=== PATIENT | male | born 1985 | race Caucasian/White ===

== ENCOUNTER → 2016-10-04 | Outpatient (CLI) | payer OTHER ==
--- NOTE | 2016-10-05 06:40 | PAP/PSG TECHNICIAN REPORT ---
[facility] Geothermal Operating Engineer Polysomnogram Report Study name: None Report date: 10/05/2016 Study date: 10/04/2016 Referring Physician: Name: KRISHNA OROZCO Interpreting Physician: Wai Wyatt D.O. Date of : 1985 Geothermal Operating Engineer: Brigitte Chung RPSGT. Sex: Male Age: 31 Study Type: PSG Weight: 179 lbs Height: 31 years, Height 6' 0.5" BMI: 23.94 Medications: NONE REPORTED Patient History 31 yr-old male here for a baseline/split study. He has a history of snoring and witnessed apneas. He had completed a home sleep study. He was found to have mild CAMERON. He is in the lab to assess any CAMERON. His [place] scale is 9. The test was started on room air. ETCO2 testing was not utilized during this study. Room 3 Parameters Monitored NPSG: E1-M2, E2-M1, Fp1-M2, Fp2-M1, F3-M2, F4-M2, F4-M1, C3-M2, C4-M2, C4-M1, O1-M2, O2-M2, O2-M1, T3-M2, T4-M1, P3-M2, P4-M1, CHIN1, CHIN2, HR, EKG, Legs, PFLOW, SNOR, FLOW, CFLOW, Tidal Volume, THOR, ABDO, SpO2, PLTH, CPRESS, ETCO2 Wave, ETCO2, pH Sleep Architecture Sleep Stages Time at Lights Off 10:02:13 PM STAGES Time (min.) TST (%) Time at Lights On 5:29:43 AM Wake 31.0 -- Total Recording Time (TRT) 447.50 min. N1 37.0 9 Total Sleep Period (TSP) 442.0 min. N2 249.0 60 Total Sleep Time (TST) 416.5min. N3 33.0 8 Awake Time 31.0 min. REM 97.5 23 Wake after Sleep Onset 26.5 min. Sleep Efficiency (SE) 93 % Sleep Onset Latency ([place]) 4.5 min. Number of Stage 1 Shifts None Awakenings 17 Stage Changes 100 Number of REM periods 7 REM 97.5 23 REM Latency 76.5 min. NREM 319.0 77 Body Position Analysis Supine Right Left Side Prone Vertical Total Sleep Time (min.) 112.7 128.3 195.7 324.05 0.0 0.0 Total Sleep Time (%) 22% 31% 47% 78 0% N/A% Total Sleep Time REM (min.) 27.8 34.2 35.5 None 0.0 0.0 Total Sleep Time NREM (min.) 64.7 94.1 160.2 None 0.0 0.0 Intermittent Wake (min.) 20.3 2.3 8.4 None 0.0 0.0 Total Sleep Period (%) 24% None None None None None Arousals Myoclonus (PLM) * Events Count Index Events Count Index Spontaneous 39 6 Events Awake (PLMW) 30 58.1 Respiratory 18 2.9 Events Asleep w/ Arousal (PLMA) 10 1.4 PLM 10 1 Events Asleep w/o Arousal (PLMS) 58 8.4 Snoring 11 2 Total Asleep 68 9.8 Total 78 11 Total 98 13 Respiratory Analysis * CA OA MA CH H RERA Total Count 0 2 0 0 33 9 35 Index 0.0 0.3 0.0 0 4.8 1 6.3 Mean Duration 0.0 24.3 0.0 0.00 20.6 18.4 20.3 Longest Duration 0.0 31.5 0.0 0.00 0.0 23.2 35.9 Respiratory Event Summary Total Supine ~Supine Right Left Prone REM NREM Apneas Count 2 0 2 0 2 N/A 0 2 Index 0.3 0 0 0.0 0.6 N/A 0 0 Hypopneas (4% Desat) Count 33 14 19 4 15 N/A 20 13 Index 4.8 9.1 4 1.9 4.6 N/A 12.3 2.4 Apneas & All Hypopneas Count 35 14 21 4 17 N/A 20 15 Index 5.0 9 4 2 5 N/A 12.3 2.8 Respiratory Events (Channeling Machine Operator+All Hyp+RERA) Count 35 17 27 6 21 N/A 20 15 Index 6.3 11 5 2.8 6.4 N/A 13.5 4.1 Respiratory Related Arousal Count 18 17 10 3 7 N/A 5 15 Index 2.9 6 2 1 2 N/A 3 3 Snoring Analysis Supine Right Left Prone REM NREM Total Snore duration 5.1 min Snores count 34 33 48 N/A 36 79 115 Snore mean duration 2.7 Sec Snores index 22 15 15 N/A 22.2 14.9 16.6 TST with snoring (%) 1.2% Desaturation Event Summary: Minimum %SpO2 Event Count Mean/Min/Max Duration(sec.) Desaturation Index % Time In Bed > 90 42 32.2 / 9.3 / 60.0 5.8 98.1 86 - 90 1 9.3 / 9.3 / 9.3 7.3 1.8 81 - 85 0 N/A 0.0 0.0 76 - 80 0 N/A 0.0 0.0 71 - 75 0 N/A 0.0 0.0 66 - 70 0 N/A 0.0 0.0 61 - 65 0 N/A 0.0 0.0 56 - 60 0 N/A 0.0 0.0 51 - 55 0 N/A 0.0 0.0 < 50 0 N/A 0.0 0.0 Total REM NREM Awake <50% 0.0 min. 0.0 min. 0.0 min. 0.0 min. 51 - 60% 0.0 min. 0.0 min. 0.0 min. 0.0 min. 61 - 70% 0.0 min. 0.0 min. 0.0 min. 0.0 min. 71 - 80% 0.0 min. 0.0 min. 0.0 min. 0.0 min. 81 - 90% 8.3 min. 3.4 min. 4.6 min. 0.3 min. 91 - 100% 437.7 min. 94.0 min. 313.9 min. 29.8 min. Average 94 94 94 94 Minimum SpO2 85 85 88 89 Desaturation Event Index 5.6 12.3 3.6 5.8 # Desat. Events below 89% 5 3 2 N/A Time(%) with Saturation below 89% 0.3 0.2 0.1 0.0 Time(min.) with Saturation below 89% 1.5 1.0 0.5 0.0 Time (mins) REM (mins) NREM (mins) % of TST SpO2 Below 90% 23 10 N13 0.9 SpO2 Below 88% 4 0 0 0 Heart Rate Analysis Min (bpm) Max (bpm) Average (bpm) Awake 43 127 61 NREM 41 82 51 REM 42 86 57 Overall 41 86 52 Supplemental O2 Values Minimum O2 level: None Value Start Time End Time Geothermal Operating Engineer Comments Mr. Orozco slept in the right, left, and supine positions. No cardiac arrhythmias or PLMs were noted. Some episodes of bruxism were noted. Snoring was noted and scored as a 1-2 on a scale of 1 through 5. (0=no snoring, 5=snoring loud enough to be heard through a closed door or down the [address] way). He did not meet specific Split-Night criteria during the diagnostic portion of this study. He did not wake up to use the restroom during the night. Mr. Orozco stated that he slept a little worse than usual. The final report will be interpreted and signed by a sleep physician. The completed physician report will then be placed in the patient medical record. Therapy (cm H2O) 0 TIB (min.) 447.5 TST (min.) 416.5 Sleep Onset (min.) 4.5 REM Onset From Sleep (min.) 76.5 Sleep Efficiency % 93 Wakefulness (%) 7 Wakefulness (min.) 31.0 NREM 1 (%) 9 NREM 1 (min.) 37.0 NREM 2 (%) 60 NREM 2 (min.) 249.0 NREM 3 (%) 8 NREM 3 (min.) 33.0 REM (%) 23 REM (min.) 97.5 # Arousals 78 Arousal Index 11 # Snore 115 Snore Index 16.6 AHI 5.0 AHI Supine 9 AHI Non-Supine 4 NREM AHI 2.8 REM AHI 12.3 RDI 6.3 # Obstructive Apnea 2 # Central Apnea 0 # Mixed Apnea 0 # Hypopneas 33 RERAs 9 Total Respiratory Events 45 Time Below SpO2 89% (min.) 1.5 Mean NREM SpO2 (%) 94 Mean REM SpO2 (%) 94 Mean Sleep SpO2 (%) 94 Min NREM SpO2 (%) 88 Min REM SpO2 (%) 85 Position Supine (min.) 112.7 Position Non-supine (min.) 324.1 LM Index Sleep 9.8 LM Index NREM 10.0 LM Index REM 9.2 Mean Heart Rate (bpm) 52 Min Heart Rate (bpm) 41
--- NOTE | 2016-10-08 14:36 | POLYSOMNOGRAPH REPORT ---
CLINICAL DATA: The patient is a 31-year-old male referred by Dr. Demetri Batista. The patient has a history of having a home sleep study done which reportedly showed mild obstructive sleep apnea. He was referred for a diagnostic sleep study and to do a titration study if the patient qualifies. His Perry Sleepiness Score is 9 out of a possible 24. SLEEP ARCHITECTURE: The total sleep period was 442.0 minutes. The total sleep time was 416.5 minutes. The sleep efficiency was normal at 93%. The sleep onset latency was normal at 4.5 minutes. Wake after sleep onset was only 26.5 minutes. The REM latency was normal at 76.5 minutes. Sleep consisted of stage N1 9%, stage N2 60%, stage N3 8%, stage REM 23%. AROUSAL DATA: The patient had a total of 78 arousals including 39 spontaneous arousals, 18 respiratory arousals, 10 PLM arousals, and 11 snoring arousals. The arousal index was 11. PLM DATA: The patient had a total of 68 periodic limb movements of sleep for an index of 9.8. The PLM arousal index was only 1.4. EKG: The underlying cardiac rhythm was normal sinus. The cardiac rates ranged from 41-86 beats per minute with an average of 52 beats per minute. No arrhythmias were noted. RESPIRATORY DATA: The patient had a total of 35 respiratory events including 2 obstructive apneas and 33 hypopneas. The 4% rule was utilized for scoring hypopneas. The apnea hypopnea index was 5.0 events per hour. This would be reflecting borderline normal to mild sleep apnea. He did have 9 RERAS. OXIMETRY DATA: The average oxygen saturation was 94%. The minimum saturation was 85%, but this was very transient. For the entire night he had a total of 1.5 minutes with saturations less than 89%. SERVICE RIG OPERATOR'S COMMENTS: The patient slept in the right, left, and supine positions. No cardiac arrhythmias were noted. Some episodes of bruxism were noted. Snoring was noted and scored as a 1-2 on a scale of 1 through 5. He did not meet specific split night criteria and thus he was not treated with nasal CPAP. IMPRESSION: Obstructive sleep apnea -- mild. COMMENTS: The patient had a normal sleep efficiency and normal sleep architecture. There was a modest number of increased arousals, many of which were spontaneous. His snoring was mild to moderate. His apnea hypopnea index is 5.0, which reflects borderline normal to at most mild sleep apnea. Oxygenation was essentially normal. RECOMMENDATIONS: Follow up is deferred to Dr. Demetri Batista who referred the patient. Considerations could include ENT surgery, treatment with an oral appliance, or consideration to a trial of nasal CPAP if clinically indicated. [facility]
== END | disposition home or self-care (01) ==
LOC: C.NEUR 21:00
DX: G47.33 Obstructive sleep apnea (adult) (pediatric) (principal)

== ENCOUNTER → 2016-11-24 | Outpatient (CLI) | payer OTHER ==
[2016-11-24 19:12] LABS: BASO % 0.5 %; BASO ABS # 0.03 K/uL (0-0.2); COMPLETE YES; EOS % 1.8 %; HEMATOCRIT 43.5 % (42-52); IG% 0.2 %; LYMPH % 40.3 %; LYMPH ABS # 2.41 K/uL (1.2-3.4); MEAN CELL VOLUME 83.3 fL (80-100); MEAN CORPUSCULAR HEMOGLOBIN 29.5 pg (25-34); MEAN CORPUSCULAR HGB CONC 35.4 g/dl (32-36); MEAN PLATELET VOLUME 9.9 fL (7.4-10.4); MONO % 7.7 %; NEUT % 49.5 %; PLATELET COUNT 240 K/uL (130-400); RED BLOOD COUNT 5.22 M/uL (4.7-6.1); WHITE BLOOD COUNT 5.98 K/uL (4.8-10.8)
[2016-11-24 19:23] LABS: PROTHROMBIN TIME (PATIENT) 10.7 SECONDS (9.0-12.0)
== END | disposition home or self-care (01) ==
LOC: C.LAB 18:52
DX: Z01.818 Encounter for other preprocedural examination (principal)

== ENCOUNTER → 2016-12-02 | Day surgery (SDC) | payer OTHER ==
[2016-12-01 10:29] VITALS: Ht 182.9 cm; Wt 77.3 kg
[~2016-12-02] VITALS: Ht 182.9 cm; Wt 77.3 kg
[~2016-12-02] MED LIST: ACETAMINOPHEN/HYDROCODONE ELIX 15 ML/CUP UDP ONE; ATROPINE SULFATE 0.1 MG/ML 5ML SYR IV PRN; BACITRACIN/POLYMYXIN B OINT 15 GM TUBE EXT ONE; DEXAMETHASONE SOD INJ 4 MG/ML VIAL ONE; EpHEDrine SULFATE INJ 50 MG/ML AMP IV PRN; FENTANYL CITRATE INJ 50 MCG/1 ML 2 ML VIAL ONE; FLUMAZENIL 0.1 MG/1 ML 10 ML VIAL IV PRN; GLYCOPYRROLATE INJ 0.2 MG/ML VIAL ONE; HYDROCODONE/APAP 2.5MG/108MG ELIX 5 ML UDP PO PRN; LABETALOL HCL IV 5 MG/ML 20ML IV PRN; LACTATED RINGER'S 1000ML 1,000 ML IV SCH; LIDOCAINE 2% JELLY 5 ML TUBE EXT ONE; LIDOCAINE HCL 2% 2 ML VIAL (20MG/ML) ONE; MIDAZOLAM HCL 1 MG/ML 2ML VIAL ONE; NALOXONE HCL 0.4 MG/1 ML VIAL/CARP IV PRN; NEOSTIGMINE METHYLSULFATE 5 MG/5 ML SYR ONE; ONDANSETRON INJ 2 MG/ML 2 ML VIAL IV PRN; ONDANSETRON INJ 2 MG/ML 2 ML VIAL ONE; PATIENT'S ALLERGY INFO NEEDS ENTERED SCH; PROMETHAZINE HCL INJ 12.5 MG in SODIUM CHLORIDE 0.9% 50ML 50 ML IV PRN; PROPOFOL IV EMULSION 10 MG/ML 20 ML VIAL IV ONE
--- NOTE | 2016-12-02 10:22 | History & Physical Bridge - SC ---
H&P Re-Evaluation Bridge Note: I have examined the patient, reviewed the History & Physical and in the interval since the performance of the History & Physical I have noted the following changes of clinical significance: No changes noted
--- NOTE | 2016-12-02 10:23 | History and Physical: Surg Cnt ---
History & Physical Date Dec 02, 2016. Chief Complaint MILD CAMERON History of Present Illness The patient is a 31 year old male with complaints of MILD CAMERON AND CANNOT TOLERATE CPAP. Past Medical/Surgical History PMH: MILD CAMERON PSH: S/P ORAL SURGERY Additional History Hepatic Disease: No Endocrine Disorder: No Kidney Disease: No Hypertension: No Heart Disease: No Bleeding Tendencies: No Infectious Diseases: No Allergies Coded Allergies: No Known Allergies (Unverified , 12/02/16) Home Medications No Active Prescriptions or Reported Meds Physical Examination Skin: warm/dry, no rash Eyes: normal inspection, EOMI, sclerae normal ENT: + pertinent finding (2-3 + TONSILS; ELONGATED UVULA) Head: normocephalic, atraumatic Neck: supple, no adenopathy, trachea midline Respiratory/Chest: lungs clear, normal breath sounds, no respiratory distress Cardiovascular: regular rate, rhythm, no edema, no murmur Neurologic/Psych: no motor/sensory deficits, alert, normal reflexes, oriented x 3 Diagnosis MILD CAMERON Plan of Treatment TONSILLECTOMY AND UVULECTOMY
--- NOTE | 2016-12-02 11:40 | [facility] Operative Report ---
Operative Report Operative Date Dec 02, 2016. Pre-Operative Diagnosis Obstructive Sleep Apnea Post-Operative Diagnosis Same Procedure(s) Performed Uvelectomy and Tonsillectomy Surgeon Dr. Cas Batista Department Manager Surgeon(s) None Estimated Blood Loss 5ML Findings 1. 3+ ENDOPHYTIC TONSILS 2. ENLARGED, ELONGATED UVULA Specimens A. Right Tonsil B. Left Tonsil I attest to the content of the Intraoperative Record and any orders documented therein. Any exceptions are noted below.
--- NOTE | 2016-12-02 11:42 | Discharge Instructions ---
Discharge Instructions Date of Service Dec 02, 2016. Admission Reason for Admission: Obstructive Sleep Apnea Discharge Discharge Diagnosis / Problem: SAME Discharge Goals Goal(s): Therapeutic intervention Activity Recommendations Activity Limitations: as noted below 1. LIGHT ACTIVITY FOR 2WEEKS 2. SOFT DIET FOR 2 WEEKS 3. NO DRIVING WHILE ON LORTAB . Current Hospital Diet Patient's current hospital diet: Full Liquid Diet Discharge Diet Recommended Diet: Full Liquid Diet Diet Texture: Mechanical Soft (ground) Procedures Procedures Performed: Uvelectomy and Tonsillectomy Pending Studies Studies pending at discharge: no Medical Emergencies . Who to Call and When: Medical Emergencies: If at any time you feel your situation is an emergency, please call 911 immediately. . Non-Emergent Contact Non-Emergency issues call your: Surgeon . . "Provider Documentation" section prepared by Demetri Batista. . VTE Core Measure Inpt VTE Proph given/why not?: SCD's
[2016-12-02] MEDS: FENTANYL CITRATE INJ 50 MCG/1 ML 2 ML VIAL IV PRN ×3 (12:02→12:30)
--- NOTE | 2016-12-02 12:29 | OPERATIVE REPORT ---
DATE OF OPERATION: 12/02/2016 PREOPERATIVE DIAGNOSES: 1. Mild obstructive sleep apnea. 2. Tonsillar hypertrophy. 3. Uvular hypertrophy. POSTOPERATIVE DIAGNOSES: 1. Mild obstructive sleep apnea. 2. Tonsillar hypertrophy. 3. Uvular hypertrophy. PROCEDURES: 1. Bilateral tonsillectomy. 2. Uvulectomy. SURGEON: Dr. Batista. ANESTHESIA: General endotracheal. ESTIMATED BLOOD LOSS: 5 mL. FINDINGS: 1. 3+ endophytic tonsils bilaterally. 2. Elongated and enlarged uvula. SPECIMENS: 1. Right and left tonsil sent separately for permanent pathological assessment. 2. Uvula sent off for permanent pathologic assessment. COMPLICATIONS: None. INDICATIONS FOR THE PROCEDURE: The patient is a 31-year-old male with history of mild obstructive sleep apnea for which I recommended continuous positive airway pressure treatment, but the patient states that he cannot tolerate it and wants surgical intervention instead given his tonsillar hypertrophy and uvular hypertrophy. He has loud snoring and excessive daytime sleepiness and does not feel like he gets adequate restful sleep. He presents for the above-mentioned procedure on an outpatient elective basis. OPERATION AND FINDINGS: DETAILS OF PROCEDURE: After informed consent had been obtained from the patient, the patient was wheeled to the operating room and placed on the operating table in the supine position. Monitors were placed. After induction of general endotracheal anesthesia, the table was turned 90 degrees and the patient's head and neck were gently extended. Antibiotic ointment was applied to lips and a mouth gag was carefully inserted, opened, and stabilized on a roll of towels. The palate was inspected and found to be normal. An Allis clamp was used to grasp the right tonsil in the superior pole and Bovie electrocautery was used to remove the tonsil in the capsular plane with care to preserve the underlying mucosa and musculature of the anterior and posterior tonsillar pillars. The left tonsil was then removed in a similar fashion. Intraoperative findings were of 3+ endophytic tonsils bilaterally. These were sent off separately for permanent pathological assessment. Using the Bovie on cut mode the mucosal incision was made over the uvula and using coagulation mode the uvula was removed and using the Bovie on coag mode the uvular muscle was dissected down to the level of the mucosa of the nasopharyngeal surface of the soft palate. Then the Bovie on cut mode was used to complete the uvulectomy incision. The uvula was sent off for permanent pathologic assessment. The uvulectomy site was closed with 5 simple interrupted 3-0 Vicryl sutures. The mouth gag was then released for 1 minute. This was reopened and hemostasis was confirmed. The oral cavity and oropharynx were irrigated and suctioned. An orogastric tube was placed and the stomach suctioned free of air and stomach contents. This marked the end of the case. The patient tolerated the procedure well. There were no apparent complications. 2% lidocaine jelly was placed in the bilateral tonsillar fossae for added anesthetic effect. All the instrumentation was removed from the patient. The patient was extubated and transferred to recovery room in stable condition. I attest to the content of the Intraoperative Record and any orders documented therein. Any exception s are noted below.
[2016-12-02 12:55] VITALS: TEMP 36.6
--- NOTE | 2016-12-02 13:06 | Anesthesia Progress Nt - [facility] ---
Anesthesia Post Op Note Date & Time Dec 02, 2016 at 13:06 Vital Signs Pain Intensity: 6.0 Vital Signs Past 12 Hours Date Time Temp Pulse Resp B/P (MAP) Pulse Ox O2 Delivery O2 Flow Rate FiO2 12/02/16 12:55 36.6 68 16 110/66 (81) 96 Room Air 12/02/16 12:37 118/78 12/02/16 12:34 78 18 12/02/16 12:34 96 Room Air 12/02/16 12:34 77 18 98 12/02/16 12:33 68 15 99 12/02/16 12:33 61 15 12/02/16 12:32 112/75 12/02/16 12:28 68 13 12/02/16 12:28 67 13 98 12/02/16 12:27 119/73 12/02/16 12:23 73 17 96 12/02/16 12:23 79 17 12/02/16 12:22 119/71 12/02/16 12:19 66 16 12/02/16 12:19 64 16 93 12/02/16 12:18 37.2 94 Room Air 12/02/16 12:17 112/71 12/02/16 12:14 57 13 99 12/02/16 12:14 57 13 12/02/16 12:13 57 17 12/02/16 12:13 57 17 12/02/16 12:13 55 17 98 12/02/16 12:13 55 17 98 12/02/16 12:12 114/82 12/02/16 12:12 114/82 12/02/16 12:08 64 10 96 12/02/16 12:08 64 10 96 12/02/16 12:08 64 10 12/02/16 12:08 64 10 12/02/16 12:07 111/72 12/02/16 12:07 111/72 12/02/16 12:03 75 17 12/02/16 12:03 74 17 100 12/02/16 12:03 74 17 100 12/02/16 12:03 75 17 12/02/16 12:02 120/73 12/02/16 12:02 120/73 12/02/16 11:58 80 21 12/02/16 11:58 82 21 97 12/02/16 11:58 82 21 97 12/02/16 11:58 80 21 12/02/16 11:57 121/73 12/02/16 11:57 121/73 12/02/16 11:53 81 20 97 12/02/16 11:53 81 20 12/02/16 11:53 81 20 12/02/16 11:53 81 20 97 12/02/16 11:52 117/69 12/02/16 11:52 117/69 12/02/16 11:50 126/67 12/02/16 11:50 126/67 12/02/16 11:48 36.8 86 16 126/87 94 Humidified Oxygen 6 Mask 12/02/16 09:53 36.7 71 18 127/83 (98) 97 Room Air Notes Mental Status: alert / awake / arousable, participated in evaluation Pt Amnestic to Procedure: Yes Nausea / Vomiting: adequately controlled Pain: adequately controlled Airway Patency, RR, SpO2: stable & adequate BP & HR: stable & adequate Hydration State: stable & adequate Anesthetic Complications: no major complications apparent
[2016-12-02 13:40] VITALS: BP 115/76; PULSE 65; O2SAT 97
== END | disposition home or self-care (01) ==
LOC: X.SURG 09:40
DX: G47.33 Obstructive sleep apnea (adult) (pediatric) (principal); J35.1 Hypertrophy of tonsils; K13.79 Other lesions of oral mucosa